=== PATIENT | female | born 1985 | race Two or more races ===

== ENCOUNTER 2017-10-12 15:29 | Emergency (ER) | payer OTHER ==
[~2017-10-12] VITALS: Ht 162.6 cm; Wt 63.5 kg
[2017-10-12] MEDS ORDERED: NKM (15:42)
[2017-10-12 15:58] VITALS: BP 111/77
[2017-10-12 16:15] VITALS: BP 111/77
--- NOTE | 2017-10-12 17:10 | Emergency Room Report ---
History of Present Illness General Chief Complaint: Syncope Source: Patient Present Illness HPI 32 yo F presents to ED c/o syncopal episode. Patient states she was working at [employer] today which started to feel lightheaded and dizzy and nearly passed out. Patient did not hit her head. Questionable LOC. No amnesia regarding the events. Patient states the last few days she's been experiencing cough runny nose and congestion. States she's had a fever. Afebrile in triage. Denies ear ache or sore throat. Denies sick contacts or recent travel. Denies chest pain or shortness of breath. Denies any headache or neck stiffness. No other aggravating relieving factors. Denies any other associated symptoms Allergies: Coded Allergies: No Known Allergies (Unverified , 10/12/17) Patient History Past Medical History: none Past Surgical History: none Pertinent Family History: none Social History: Denies: smoking, alcohol use, drug use Last Menstrual Period: 09/21/2017 Now: No Immunizations: UTD Reviewed Nursing Documentation: PMH: Agreed; PSxH: Agreed Nursing Documentation-PMH Past Medical History: No Stated History Review of Systems All Other Systems: negative except mentioned in HPI Physical Exam Vital Signs Date Time Temp Pulse Resp B/P (MAP) Pulse Ox O2 Delivery O2 Flow Rate FiO2 10/12/17 15:34 98.6 99 16 111/77 98 Room Air 98.6 Sp02 EP Interpretation: reviewed, normal General Appearance: no apparent distress, alert, GCS 15, non-toxic Head: normocephalic, atraumatic Eyes: bilateral eye normal inspection, bilateral eye PERRL ENT: hearing grossly normal, normal pharynx, no angioedema, normal voice Neck: full range of motion, supple/symm/no masses Respiratory: chest non-tender, lungs clear, normal breath sounds, speaking full sentences Cardiovascular #1: regular rate, rhythm, no edema Cardiovascular #2: 2+ carotid (R), 2+ carotid (L), 2+ radial (R), 2+ radial (L) , 2+ dorsalis pedis (R), 2+ dorsalis pedis (L) Gastrointestinal: normal bowel sounds, non tender, soft, non-distended, no guarding, no rebound Rectal: deferred Genitourinary: normal inspection, no CVA tenderness Musculoskeletal: back normal, gait/station normal, normal range of motion, non- tender Neurologic: alert, oriented x3, responsive, motor strength/tone normal, sensory intact, speech normal Psychiatric: judgement/insight normal, memory normal, mood/affect normal, no suicidal/homicidal ideation Reflexes: 3+ bicep (R), 3+ bicep (L), 3+ tricep (R), 3+ tricep (L), 3+ knee (R) , 3+ knee (L) Skin: normal color, no rash, warm/dry, well hydrated Lymphatic: no adenopathy Medical Decision Making Diagnostic Impression: Primary Impression: Upper respiratory infection Qualified Codes: J06.9 - Acute upper respiratory infection, unspecified Additional Impression: Syncope Qualified Codes: R55 - Syncope and collapse ER Course Hospital Course 32 yo F presents with near syncopal episode, runny nose and cough Differential diagnoses include: URI, pharyngitis, otitis media, arryhtmia Clinical course Patient placed on stretcher. After initial history, physical exam reveals a young male in no acute distress. Bilateral TM unremarkable. No pharyngeal erythema. No tonsillar exudates. No lymphadenopathy. lungs clear. abdomen soft. EKG - NSR, no acute ischemic changes interpreted by me Clinical findings consistent with URI. Reassurance given. Nursing will episodes likely vasovagal secondary to viral illness. Patient has no cardiac risk factors. Patient was safely discharged to home. Fluids and rest Diagnosis - URI, syncope Stable and discharged home. Instructed to followup with PMD. Return to ED if symptoms recur or worsen EKG Diagnostic Results Rate: normal Rhythm: NSR ST Segments: no acute changes ASA given to the pt in ED: No Rhythm Strip Diag. Results EP Interpretation: yes Rhythm: NSR, no PVC's, no ectopy Last Vital Signs Date Time Temp Pulse Resp B/P (MAP) Pulse Ox O2 Delivery O2 Flow Rate FiO2 10/12/17 16:15 98.6 78 16 111/77 98 Room Air 98.6 Status: improved Disposition: HOME, SELF-CARE Condition: Stable Referrals: NOT CHOSEN IPA/MD,REFERRING (PCP) Departure Forms: Return to Work Return to Work Date: Oct 14, 2017 Work Restrictions: None Patient Instructions: Upper Respiratory Infection, Adult, [id number] Fernando Chen MD Oct 12, 2017 17:09
--- NOTE | 2017-10-16 17:37 | Cardiology Report ---
APPROVED REPORT EKG Measurement Heart [id number] Normal sinus rhythm Normal ECG
== END 2017-10-12 16:30 | disposition home or self-care (01) ==
LOC: EMR 15:58
DX: J06.9 Acute upper respiratory infection, unspecified (principal); R55 Syncope and collapse
CPT/HCPCS: 93005; 99283